=== PATIENT | male | born 2000 | race Two or more races ===

== ENCOUNTER 2022-02-26 22:54 | Emergency (ER) | payer OTHER ==
[2022-02-26 22:58] VITALS: BP 130/79; PULSE 92; RESP 20; BMI 43.9
[2022-02-27] MEDS ORDERED: ACETAMINOPHEN 1000 MG/100 ML BAG IVPB ONE (00:26)
[2022-02-27] MEDS ORDERED: LACTATED RINGERS SOLUTION 1000 ML INFUS.BAG IV ONE (00:26)
[2022-02-27] MEDS ORDERED: ACETAMINOPHEN 500 MG TABLET (FP) PO ONE (02:35)
[2022-02-27 02:47] LABS: BASO % 0.4 % (0-2.0); EOS % 0.8 % (0-4.5); HEMOGLOBIN 13.4 GM/dL (11.7-16.9); LYMPH % 17.2 % (8-40); MCH 27.5 pg (25.7-33.7); MCHC 33.6 g/dl (32.0-35.9); MEAN CELL VOLUME 81.8 fl (80-96); MEAN PLT VOLUME 7.8 fl (7.5-11.1); NEUT % 75.6 % (42.8-82.8); PLATELET COUNT 269 10^3/uL (134-434); RBC 4.89 M/mm3 (4.00-5.60); RDW 14.1 % (11.9-15.9)
[2022-02-27] MEDS ORDERED: ACETAMINOPHEN 325 MG TABLET (FP) ONE (02:47)
[2022-02-27 02:56] LABS: CHLORIDE 106 mmol/L (98-107); SODIUM 138 mmol/L (136-145)
[2022-02-27 02:57] LABS: CALCIUM 8.7 mg/dL (8.5-10.1)
[2022-02-27 02:59] LABS: ALBUMIN 3.5 g/dl (3.4-5.0); ANION GAP 7 MMOL/L (8-16); BLOOD UREA NITROGEN 11.9 mg/dL (7-18); CO2 25 mmol/L (21-32); GLUCOSE,RANDOM 86 mg/dL (74-106); LIPASE 110 U/L (73-393)
[2022-02-27 03:02] LABS: CREATININE 0.7 mg/dL (0.55-1.3); SGOT/AST 23 U/L (15-37); SGPT/ALT 36 U/L (13-61)
[2022-02-27 03:04] LABS: BILIRUBIN,TOTAL 0.2 mg/dL (0.2-1); TOT PROT 7.6 g/dl (6.4-8.2)
[2022-02-27 03:05] LABS: ALK PHOS 104 U/L (45-117)
== END 2022-02-27 03:57 | disposition home or self-care (01) ==
LOC: JER 22:54
PROC: 3E033NZ Introduction of Analgesics, Hypnotics, Sedatives into Peripheral Vein, Percutaneous Approach (ICD-10-PCS; principal; 2022-02-27)
DX: R10.9 Unspecified abdominal pain (principal); R11.2 Nausea with vomiting, unspecified; R05.9 Cough, unspecified
CPT/HCPCS: 0241U-QW; 36415; 71046-TC-FY; 80053; 83690; 84484; 85025; 93005; 93010; 99284-25

== ENCOUNTER 2023-02-14 17:42 | Emergency (ER) | payer OTHER ==
[2023-02-14 17:47] VITALS: BP 134/83; PULSE 86; RESP 18; TEMP 98.9; BMI 41.3
[2023-02-14 20:06] LABS: URINE APPEARANCE CLEAR; URINE BILIRUBIN NEGATIVE (NEGATIVE); URINE COLOR YELLOW; URINE GLUCOSE (UA) NEGATIVE (NEGATIVE); URINE KETONE NEGATIVE (NEGATIVE); URINE LEUK ESTERASE NEGATIVE (NEGATIVE); URINE NITRITE NEGATIVE (NEGATIVE); URINE PROTEIN NEGATIVE (NEGATIVE)
== END 2023-02-14 20:27 | disposition home or self-care (01) ==
LOC: JERFT 17:42 → JER 17:42 → JERFT 20:27
DX: R30.0 Dysuria (principal)
CPT/HCPCS: 81003; 87086; 99283-25